=== PATIENT | female | born 1995 | race Two or more races ===

== ENCOUNTER → 2017-01-07 | Outpatient (CLI) | payer OTHER ==
[~2017-01-07] MED LIST: METF500T13
--- NOTE | 2017-01-07 13:58 | REP ---
RIGHT ANKLE, FOUR VIEWS: Four views of the right ankle are performed and demonstrate no fracture, dislocation or intrinsic bone disease. Ankle mortise is anatomic. There is lateral soft tissue swelling. IMPRESSION: Lateral soft tissue swelling. No fracture or dislocation. Signed by Erasmo Sultana MD 01/07/2017 03:21 P
== END ==
LOC: M LRY 11:11
PROVIDERS: ATTEND Nurse Practitioner Family
DX: S99.911A Unspecified injury of right ankle, initial encounter (principal); X58.XXXA Exposure to other specified factors, initial encounter; Y92.89 Other specified places as the place of occurrence of the external cause; Y93.89 Activity, other specified; Y99.8 Other external cause status
CPT/HCPCS: 73610; G0463

== ENCOUNTER 2018-02-09 08:37 | Emergency (ER) | payer OTHER | END 2018-02-09 09:51 | disposition home or self-care (01) | LOC: M ED 08:37 | DX: S20.20XA Contusion of thorax, unspecified, initial encounter (principal); V49.40XA Driver injured in collision with unspecified motor vehicles in traffic accident, initial encounter | CPT/HCPCS: 71046 ==

== ENCOUNTER → 2018-07-11 | Outpatient (CLI) | payer OTHER ==
[~2018-07-11] MED LIST changes: +IBUP-1022 PO; +SPIR50TA4 PO
[2018-07-11 16:04] LABS: BASO % 0.3 % (0.0-1.0); EOS % 0.3 % (0.0-3.0); HEMATOCRIT 38.7 % (36.0-47.0); HEMOGLOBIN 13.5 g/dl (12.0-15.5); LYMPH # 2.1 10^3/uL (1.5-6.5); LYMPH % 17.5 % (24.0-44.0); MEAN CORPUSCULAR HEMOGLOBIN 31.7 pg (27.0-33.0); MEAN CORPUSCULAR HGB CONC 34.9 g/dl (32.0-36.5); MEAN CORPUSCULAR VOLUME 90.8 fl (80.0-96.0); MONO # 0.6 10^3/uL (0.0-0.8); MONO % 4.5 % (0.0-5.0); NEUTROPHILS # 9.4 10^3/uL (1.8-7.7); NEUTROPHILS % 76.8 % (36.0-66.0); PLATELET COUNT, AUTOMATED 313 10^3/uL (150-450); RED BLOOD COUNT 4.26 10^6/uL (4.00-5.40); WHITE BLOOD COUNT 12.2 10^3/uL (4.0-10.0)
--- NOTE | 2018-07-11 16:46 | REP ---
Emergency obstetric sonography: History: Left-sided pelvic pain. History PCOS. Uncertain dates. Findings: Findings: Scanning through the gravid uterus demonstrates a viable single intrauterine gestation in a breech lie. motion is observed and heart rate is recorded at 156 beats per minute. A fundal placenta is seen without evidence of previa or abruption. Amniotic fluid is subjectively normal. No extrauterine abnormalities observed. It is too early for anatomic survey but the there are bilateral choroid plexus cysts noted intracranially. Closed cervical length measured transabdominally is 2.7 cm. Biometry chart: BPD 3.1 cm, 15 weeks 5 days Head circumference 11.2 cm, 15 weeks 3 days Abdominal circumference 9.7 cm, 15 weeks 5 days Femur length 1.8 cm, 15 weeks 2 days Humeral length 1.7 cm, 15 weeks 0 days HC/AC ratio normal 1.16 Cephalic index normal 0.78 Estimated weight 127 grams, 0 pounds 4 ounces, 46th percentile for 15 weeks 3 days. Impression: Viable single intrauterine gestation at 15 weeks 3 days by today's composite sonographic criteria. SY by today's sonography December 30, 2018. Bilateral tiny choroid plexus cysts. Follow-up advised. Electronically Signed by Grant Avilez MD 07/11/2018 04:38 P
[2018-07-11 16:56] LABS: ALBUMIN 3.3 GM/DL (3.2-5.2); ALT/SGPT 15 U/L (12-78); BILIRUBIN,TOTAL 0.2 MG/DL (0.2-1.0); BLOOD UREA NITROGEN 11 MG/DL (7-18); CALCIUM LEVEL 9.2 MG/DL (8.5-10.1); CARBON DIOXIDE LEVEL 23 MEQ/L (21-32); CHLORIDE LEVEL 107 MEQ/L (98-107); CREATININE FOR GFR 0.82 MG/DL (0.55-1.30); GLOMERULAR FILTRATION RATE > 60.0 (>60); GLUCOSE, FASTING 87 MG/DL (70-100); HCG, SERUM QUANTITATIVE 24486 MIU/ML; POTASSIUM SERUM 3.6 MEQ/L (3.5-5.1); SODIUM LEVEL 140 MEQ/L (136-145); TOTAL PROTEIN 7.2 GM/DL (6.4-8.2)
== END ==
LOC: M LAB 15:44
PROVIDERS: ATTEND Physician Assistant
DX: O35.0XX0 Maternal care for (suspected) central nervous system malformation in fetus, not applicable or unspecified (principal); Z3A.15 15 weeks gestation of pregnancy

== ENCOUNTER 2018-07-13 14:39 | Emergency (ER) | payer OTHER ==
[~2018-07-13] VITALS: Ht 162.6 cm; Wt 83.6 kg
[2018-07-13] MEDS ORDERED: ACETAMINOPHEN TAB 650MG DOSE (2X325MG) PO ONE (15:30)
[2018-07-13 16:06] VITALS: BP 119/72
[2018-07-13 18:47] LABS: CHLAMYDIA DNA AMPLIFICATION POSITIVE (NEGATIVE); GC DNA AMPLIFICATION NEGATIVE (NEGATIVE)
== END 2018-07-13 16:07 | disposition home or self-care (01) ==
LOC: M ED 14:39
DX: O99.89 Other specified diseases and conditions complicating pregnancy, childbirth and the puerperium (principal); M62.830 Muscle spasm of back; N89.8 Other specified noninflammatory disorders of vagina; E28.2 Polycystic ovarian syndrome; Z3A.15 15 weeks gestation of pregnancy; Z88.0 Allergy status to penicillin

== ENCOUNTER → 2018-07-31 | Outpatient (CLI) | payer OTHER ==
--- NOTE | 2018-07-31 16:29 | REP ---
Obstetric ultrasound for anatomy: There is a single intrauterine gestation in a vertex presentation. There is movement and cardiac activity. heart rate is 124 beats per minute. The placenta is posterior / fundal without previa or abruptio. The placenta is grade zero maturity. Subjectively the amniotic fluid volume is normal. The cervix measures 2.9 cm length. Gestational age by the ultrasound today is 18 weeks 1 day/SY 12/31/2018. Gestational age by the first ultrasound is 18 weeks 2 days/SY 12/30/2018. Gestational age by LMP is 19 weeks 3 days/SY 12/22/2018. weight is torn 21 grams (0 pounds, 7 ounces). This is the 37th percentile for 18 weeks 2 days. This is less than the 3rd percentile for 19 weeks 3 days. The following anatomic structures are identified and are unremarkable: Intracranial lateral ventricles, choroid plexus, facial profile, upper lip, lungs, cardiac right ventricular outflow tract, diaphragm, stomach, cord insertion, three-vessel cord, bladder, spine, and upper lower extremities. Suboptimally demonstrated because of position are the intracranial posterior fossa, four-chamber view of the heart and cardiac left ventricular outflow tract. A followup study dedicated to these structures might be considered. Otherwise, there are no anomalies. Electronically Signed by Erasmo Horta MD 07/31/2018 04:20 P
== END ==
LOC: M RAD 15:00
PROVIDERS: ATTEND Obstetrics & Gynecology
DX: Z34.82 Encounter for supervision of other normal pregnancy, second trimester (principal)

== ENCOUNTER 2018-08-10 09:48 | Emergency (ER) | payer OTHER ==
[~2018-08-10] VITALS: Ht 160 cm; Wt 85.0 kg
[2018-08-10] MEDS ORDERED: PRENCHW PO (09:53)
[2018-08-10 11:29] LABS: APPEARANCE, URINE CLOUDY (CLEAR); BACTERIA, URINE AUTO 1+ (NEGATIVE); BILIRUBIN, URINE AUTO NEGATIVE (NEGATIVE); BLOOD, URINE BLOOD NEGATIVE (NEGATIVE); COLOR, URINE AMBER (YELLOW); GLUCOSE, URINE (UA) AUTO NEGATIVE (NEGATIVE); KETONE, URINE AUTO TRACE mg/dL (NEGATIVE); LEUKOCYTE ESTERASE, URINE AUTO 3+ (NEGATIVE); MUCUS, URINE SMALL (NEGATIVE); NITRITE, URINE AUTO NEGATIVE (NEGATIVE); PROTEIN, URINE AUTO NEGATIVE (NEGATIVE); RBC, URINE AUTO 3 /HPF (0-3); SQUAMOUS EPITHELIAL CELL UR AU 31 /HPF (0-6); UROBILINOGEN, URINE AUTO 0.2 mg/dL (0.0-2.0); WBC, URINE AUTO 14 /HPF (0-3)
[2018-08-10] MEDS ORDERED: SALI0.652 NARES (11:41)
[2018-08-10 12:00] VITALS: BP 113/61
== END 2018-08-10 12:02 | disposition home or self-care (01) ==
LOC: M ED 09:48
DX: O99.89 Other specified diseases and conditions complicating pregnancy, childbirth and the puerperium (principal); R04.0 Epistaxis; Z88.0 Allergy status to penicillin; Z3A.20 20 weeks gestation of pregnancy

== ENCOUNTER 2018-11-05 14:43 | Outpatient (CLI) | payer OTHER ==
[~2018-11-05] VITALS: Ht 160 cm; Wt 91.4 kg
[~2018-11-05 14:43] MED LIST changes: +PRENCHW PO; +SALI0.652 NARES
[2018-11-05 15:07] VITALS: BP 118/67
[2018-11-05] MEDS ORDERED: LOPERAMIDE 2 MG CAP PO ONE (16:00)
[2018-11-05] MEDS ORDERED: ONDANSETRON 4 MG ORAL DISINTEGRATING TAB (Q0162 PER 1MG) PO PRN (16:00)
[2018-11-05] MEDS ORDERED: LOPERAMIDE 2 MG CAP PO PRN (17:00)
[2018-11-05] MEDS ORDERED: ONDA4TAB6 PO (17:56)
[2018-11-05] MEDS ORDERED: LOPE2CA PO (17:56)
[2018-11-05] MEDS ORDERED: ZOFR4TAB16 PO (18:31)
[2018-11-05] MEDS ORDERED: LOPE-1 PO (18:33)
--- NOTE | 2018-11-05 20:45 | DSES ---
DATE OF ADMISSION: 11/05/2018 DATE OF DISCHARGE: HISTORY OF PRESENT ILLNESS: The patient is a 23-year-old female who is a 1, para 0, at 32 weeks 1 day gestation with an estimated date of delivery (SY) of 12/30/2018 based off of a second trimester ultrasound, and consistent with her last menstrual period. She initiated care in her second trimester with [facility], although she never saw a provider or physician, and transferred her care to [facility] to [facility] at 20 weeks gestation. Her has been complicated by late to care. Patient presents to labor and delivery today with complaints of diarrhea that started at 9:30 this morning. She reports 5-6 episodes of loose stool. She also reports vomiting twice this morning; once when she woke up and the second time after she ate breakfast. She is unable to keep any food down at this point. She reports she has not been drinking fluids out of fear of vomiting. She reports no one in her home is sick. She denies taking any kind of medications besides vitamins at this point. She denies contractions, vaginal bleeding, leaking of fluid, cramping or back pain. She does report once and a while abdominal pain in the center of her abdomen, which is not timeable and only occurs occasionally. ALLERGIES: PENICILLIN. MEDICATIONS: - vitamins. MEDICAL HISTORY: Polycystic ovary syndrome (PCOS), although conception occurred with this without any use of metformin. SURGICAL HISTORY: No past surgical history. FAMILY HISTORY: Father with hypertension, paternal grandfather with heart attack, paternal grandmother diabetes, maternal grandfather with hypertension. SOCIAL HISTORY: Patient is and living with . She denies ever being a smoker. She denies alcohol abuse or use and/or drug abuse or use. She denies any history of abuse. HEART RATE: 145 with moderate variability, positive accelerations, no decelerations. CONTRACTIONS: Occasional contractions that had started off being every 4-12 minutes, lasting 20-40 seconds and resolved after patient started drinking fluids. VITAL SIGNS: Blood pressure 118/67, maternal heart rate is 109, respirations 16, temperature 97.1. URINE DIP: Specific gravity is 1.020, pH 5, trace ketones, positive 1+ protein. PHYSICAL EXAMINATION: GENERAL: Alert and oriented times three. RESPIRATORY: Regular rate. No use of accessory muscles. ABDOMEN: Gravid. Palpation is soft to touch. Unable to feel any contractions. No tenderness with palpation. EXTREMITIES: Generalized edema. No pitting edema. ASSESSMENT: Intrauterine at 32 weeks 1 day gestation, nausea, diarrhea, vomiting, category 1 heart rate tracing, not in active labor. PLAN: Patient was given Imodium and Zofran to help with nausea and diarrhea. She was able to keep fluids down for a few hours before vomiting. She did have one episode of vomiting and one episode of diarrhea while being here in about 2-1/2-3 hours. Patient had requested to go home. Discharged to home with and encouraged to keep OB appointment tomorrow. Reviewed symptoms to call her OB provider with, including the inability to keep fluids down for 24 hours, decreased movement, leaking of fluid, labor signs and symptoms, abdominal trauma, fever. Patient instructed to call if her diarrhea and nausea and vomiting do not improve over the next 24 hours before her appointment or if her symptoms worsen. Patient discharged to home.
== END 2018-11-05 18:00 | disposition home or self-care (01) ==
LOC: M LDO 14:43
PROVIDERS: ATTEND Advanced Practice Midwife
DX: O21.2 Late vomiting of pregnancy (principal); O99.89 Other specified diseases and conditions complicating pregnancy, childbirth and the puerperium; R19.7 Diarrhea, unspecified; O26.893 Other specified pregnancy related conditions, third trimester; R10.13 Epigastric pain; Z3A.32 32 weeks gestation of pregnancy
CPT/HCPCS: 59025; G0378; G0463; Q0162

== ENCOUNTER → 2019-02-22 | Outpatient (REF) | payer OTHER ==
[~2019-02-22] MED LIST changes: +LOPE-39 PO; +LOPE2CA PO; +METF-791; +ONDA4TAB6 PO; +SPIR50TA4; +ZOFR4TAB16 PO
== END ==
LOC: M LAB REF 15:48
PROVIDERS: ATTEND Physician Assistant
DX: D22.4 Melanocytic nevi of scalp and neck (principal)

== ENCOUNTER 2019-03-04 09:40 | Emergency (ER) | payer OTHER ==
[~2019-03-04] VITALS: Ht 160 cm; Wt 89.0 kg
[~2019-03-04 09:40] MED LIST changes: -METF-791; -SPIR50TA4
[2019-03-04] MEDS ORDERED: SPIR50TA4 (09:45)
[2019-03-04] MEDS ORDERED: METF-791 (09:45)
[2019-03-04 10:13] LABS: HEMATOCRIT 41.2 % (36.0-47.0); HEMOGLOBIN 13.9 g/dl (12.0-15.5); MEAN CORPUSCULAR HEMOGLOBIN 29.6 pg (27.0-33.0); MEAN CORPUSCULAR HGB CONC 33.7 g/dl (32.0-36.5); MEAN CORPUSCULAR VOLUME 87.8 fl (80.0-96.0); PLATELET COUNT, AUTOMATED 335 10^3/uL (150-450); RED BLOOD COUNT 4.69 10^6/uL (4.00-5.40); WHITE BLOOD COUNT 8.1 10^3/uL (4.0-10.0)
[2019-03-04 10:35] LABS: ALBUMIN 4.2 GM/DL (3.2-5.2); ALT/SGPT 19 U/L (12-78); BILIRUBIN,DIRECT < 0.1 MG/DL (0.0-0.2); BILIRUBIN,TOTAL 0.3 MG/DL (0.2-1.0); BLOOD UREA NITROGEN 10 MG/DL (7-18); CALCIUM LEVEL 9.6 MG/DL (8.5-10.1); CARBON DIOXIDE LEVEL 24 MEQ/L (21-32); CHLORIDE LEVEL 107 MEQ/L (98-107); CREATININE FOR GFR 0.89 MG/DL (0.55-1.30); GLOMERULAR FILTRATION RATE > 60.0 (>60); GLUCOSE, FASTING 91 MG/DL (70-100); LIPASE 215 U/L (73-393); POTASSIUM SERUM 4.5 MEQ/L (3.5-5.1); SODIUM LEVEL 141 MEQ/L (136-145); TOTAL PROTEIN 7.8 GM/DL (6.4-8.2)
--- NOTE | 2019-03-04 12:40 | REP ---
Pelvic ultrasound including transabdominal, endovaginal and Doppler ultrasound assessment: The patient is a 10 weeks and complains of pain and heavy bleeding. The bladder is moderately distended. The uterus is anteverted and normal size measuring 6.7 x 3.7 x 4.3 cm. The myometrium is unremarkable. The endometrium is not thickened measuring 6.0 ml. There are no endometrial masses that would suggest a products of conception. Right ovary: Right ovary measures 3.8 x 1.9-1.9 cm. There is no dominant right ovarian mass or cyst. There is vascular flow with the Doppler resistive index of the parenchymal arteries measuring 0.51. Left ovary: The left ovary measures 3.01 point of by 2.0 cm and is normal size. There is no dominant mass or cyst. There is vascular flow with the Doppler resistive index of the parenchymal arteries measuring 0.63. There is no free fluid in the pelvis. Impression: Essentially negative pelvic ultrasound. Electronically Signed by Erasmo Horta MD 03/04/2019 12:32 P
[2019-03-04 12:41] VITALS: BP 133/77
== END 2019-03-04 12:41 | disposition home or self-care (01) ==
LOC: M ED 09:40
DX: N93.8 Other specified abnormal uterine and vaginal bleeding (principal); N94.6 Dysmenorrhea, unspecified; R10.2 Pelvic and perineal pain; F17.290 Nicotine dependence, other tobacco product, uncomplicated; Z88.0 Allergy status to penicillin; Z79.899 Other long term (current) drug therapy

== ENCOUNTER → 2019-08-12 | Outpatient (CLI) | payer OTHER ==
[~2019-08-12] MED LIST changes: +METF-791; +SPIR50TA4
[2019-08-12 12:37] LABS: BASO # 0.1 10^3/uL (0.0-0.2); BASO % 0.6 % (0.0-1.0); EOS # 0.1 10^3/uL (0.0-0.5); EOS % 1.3 % (0.0-3.0); HEMATOCRIT 42.7 % (36.0-47.0); HEMOGLOBIN 14.5 g/dl (12.0-15.5); LYMPH # 2.1 10^3/uL (1.5-5.0); LYMPH % 24.9 % (24.0-44.0); MEAN CORPUSCULAR VOLUME 91.4 fl (80.0-96.0); MONO # 0.5 10^3/uL (0.0-0.8); MONO % 5.5 % (0.0-5.0); NEUTROPHILS # 5.7 10^3/uL (1.5-8.5); NEUTROPHILS % 67.2 % (36.0-66.0); PLATELET COUNT, AUTOMATED 338 10^3/uL (150-450); RED BLOOD COUNT 4.67 10^6/uL (4.00-5.40); WHITE BLOOD COUNT 8.5 10^3/uL (4.0-10.0)
[2019-08-12 13:02] LABS: HEMOGLOBIN A1c 4.9 %
[2019-08-12 13:12] LABS: ALT/SGPT 18 U/L (12-78); BILIRUBIN,TOTAL 0.3 MG/DL (0.2-1.0); BLOOD UREA NITROGEN 10 MG/DL (7-18); CALCIUM LEVEL 9.4 MG/DL (8.5-10.1); CARBON DIOXIDE LEVEL 27 MEQ/L (21-32); CHLORIDE LEVEL 107 MEQ/L (98-107); CREATININE FOR GFR 0.71 MG/DL (0.55-1.30); FREE T4 0.97 NG/DL (0.76-1.46); GLOMERULAR FILTRATION RATE > 60.0 (>60); GLUCOSE, FASTING 80 MG/DL (70-100); POTASSIUM SERUM 4.4 MEQ/L (3.5-5.1); SODIUM LEVEL 139 MEQ/L (136-145); THYROID STIMULATING HORMONE 0.828 uIU/ML (0.358-3.740); TOTAL 25(OH) VITAMIN D 16.1 NG/ML (30.0-100.0); TOTAL PROTEIN 7.4 GM/DL (6.4-8.2)
== END ==
LOC: M WUC 10:43
PROVIDERS: ATTEND Physician Assistant
DX: Z00.00 Encounter for general adult medical examination without abnormal findings (principal); E28.2 Polycystic ovarian syndrome; Z13.0 Encounter for screening for diseases of the blood and blood-forming organs and certain disorders involving the immune mechanism; R53.83 Other fatigue

== ENCOUNTER → 2019-12-13 | Outpatient (REF) | payer OTHER ==
[~2019-12-13] MED LIST changes: -METF-791; +METF-838
== END ==
LOC: M LAB REF 18:13
PROVIDERS: ATTEND Physician Assistant
DX: N76.0 Acute vaginitis (principal)

== ENCOUNTER → 2019-12-14 | Outpatient (CLI) | payer OTHER ==
[2019-12-14 16:27] LABS: BASO % 0.4 % (0.0-1.0); EOS # 0.2 10^3/uL (0.0-0.5); EOS % 1.9 % (0.0-3.0); HEMATOCRIT 44.9 % (36.0-47.0); HEMOGLOBIN 14.8 g/dl (12.0-15.5); LYMPH # 2.7 10^3/uL (1.5-5.0); LYMPH % 34.4 % (24.0-44.0); MEAN CORPUSCULAR VOLUME 91.1 fl (80.0-96.0); MONO # 0.5 10^3/uL (0.0-0.8); MONO % 5.9 % (0.0-5.0); NEUTROPHILS # 4.5 10^3/uL (1.5-8.5); PLATELET COUNT, AUTOMATED 289 10^3/uL (150-450); RED BLOOD COUNT 4.93 10^6/uL (4.00-5.40); WHITE BLOOD COUNT 7.9 10^3/uL (4.0-10.0)
[2019-12-14 16:28] LABS: ALBUMIN 3.7 GM/DL (3.2-5.2); ALT/SGPT 26 U/L (12-78); BILIRUBIN,DIRECT < 0.1 MG/DL (0.0-0.2); BILIRUBIN,TOTAL 0.3 MG/DL (0.2-1.0); BLOOD UREA NITROGEN 8 MG/DL (7-18); CALCIUM LEVEL 8.9 MG/DL (8.5-10.1); CARBON DIOXIDE LEVEL 25 MEQ/L (21-32); CHLORIDE LEVEL 107 MEQ/L (98-107); CREATININE FOR GFR 0.75 MG/DL (0.55-1.30); GLOMERULAR FILTRATION RATE > 60.0 (>60); GLUCOSE, FASTING 76 MG/DL (70-100); LIPASE 165 U/L (73-393); SODIUM LEVEL 138 MEQ/L (136-145); TOTAL PROTEIN 7.4 GM/DL (6.4-8.2)
[2019-12-14 16:31] LABS: HCG, SERUM QUALITATIVE NEGATIVE (NEGATIVE)
== END ==
LOC: M WUC 12:10
PROVIDERS: ATTEND Physician Assistant
DX: R11.0 Nausea (principal)